=== PATIENT | female | born 1985 | race Caucasian/White ===

== ENCOUNTER 2022-01-25 12:52 | Emergency (ER) | payer OTHER ==
[2022-01-25 13:21] LABS: HEMOGLOBIN 13.1 gm/dl (12.3-15.3); RED BLOOD COUNT 4.41 M/UL (4.00-5.10); WHITE BLOOD COUNT 7.7 K/UL (4.5-11.0)
[2022-01-25 13:46] LABS: BUN/CREATININE RATIO 9 (0-10)
== END 2022-01-25 17:07 | disposition home or self-care (01) ==
LOC: ER1 12:52
PROVIDERS: Emergency Medicine
DX: R07.9 Chest pain, unspecified (principal); F17.210 Nicotine dependence, cigarettes, uncomplicated; Z88.0 Allergy status to penicillin; Z20.822 Contact with and (suspected) exposure to COVID-19
CPT/HCPCS: 71045; 80053; 82550; 82553; 84484; 85025; 85652; 86140; 87040; 93005; 99285; U0002